=== PATIENT | female | born 1995 | race Caucasian/White ===

== ENCOUNTER 2017-02-12 12:30 | Inpatient (IN) | payer BC, MEDICAID ==
[~2017-02-12] VITALS: Ht 154.9 cm; Wt 63.5 kg
--- NOTE | ~2017-02-12 | FD ---
ADMIT: 02/12/2017 RM/LOC: 229 [facility] MR#: [id number] [id number] [facility] [address] [place] [id number] [address] [place] [address] Final Diagnosis SEX: F AGE: 21 : 1995 ADMISSION DATE: 02/12/2017 DISCHARGE DATE: 02/13/2017 FINAL DIAGNOSIS: 1. A 21-year-old 3 para 2-0-1-2 status post spontaneous vaginal delivery at 38 weeks 0 days. 2. Episiotomy, status post repair. PROCEDURE: 1. Spontaneous vaginal delivery. 2. Episiotomy, status post repair. Abbie Samayoa MD Resident / Georgia Covington MD / monet JOB #: [id number] CC: Dinora Salas MD, Attending Physician FAMILY PHYSICIAN, Family Physician
--- NOTE | 2017-02-13 11:04 | HP ---
ADMIT: 02/12/2017 RM/LOC: 229 [facility] MR#: [id number] [id number] [place], [place] [address] [address] [place] [address] History and Physical SEX: F AGE: 21 : 1995 CORRECTED: 02/13/2017 0703 [facility] DATE OF SERVICE: 02/12/2017 CHIEF COMPLAINT: Contractions and vaginal bleeding. HISTORY OF PRESENT ILLNESS: This is a 21-year-old, G3, P 1-0-1-1 with an intrauterine at 38 weeks zero days via LMP and confirmed by first- trimester ultrasound, who presents with vaginal bleeding which is bright and mixed with mucus in character as well as contractions which are occurring every 5 minutes. The patient reports the contractions started approximately one day ago but increased in intensity and frequency this morning around 9:00 a.m. She was observed for approximately 1 hour and cervical changes noted with the change from 4 cm to 5-1/2 cm over the course of 1 hour. She denied leaking of fluid at the time of admission. Normal movement. Denies headache, changes of vision, chest pain, or shortness of breath. No nausea, vomiting, diarrhea, or constipation. COMPLICATIONS: History of vaginal spotting in the second trimester which resolved spontaneously. No other known complications. PAST MEDICAL HISTORY: She denies a history of diabetes, hypertension, or asthma. She does have a history of anemia. SURGICAL HISTORY: She denies a surgical history. MEDICATIONS: 1. Iron supplement. 2. Ferrous sulfate 325 mg daily. 3. vitamin. ALLERGIES: SHE DENIES ANY MEDICAL ALLERGIES. SOCIAL HISTORY: She denies tobacco use, alcohol use, or recreational drug use. The father of the baby is her boyfriend and is involved. FAMILY HISTORY: She denies a family history of hypertension or diabetes. No known cardiovascular disease. REVIEW OF SYSTEMS: She denies headache, changes of vision, chest pain, or shortness of breath. No nausea, vomiting, diarrhea, or constipation. PHYSICAL EXAMINATION: VITAL SIGNS: Blood pressure 125/80, pulse 93, respiratory rate 20, she is afebrile with a temperature of 98.2, and she is saturating 97% on room air. GENERAL: She is generally alert and oriented, in no acute distress. HEART: Regular rate and rhythm. LUNGS: Clear to auscultation bilaterally. ABDOMEN: Gravid. Nontender to palpation. Fetus appears vertex via Andrew's ADMIT: 02/12/2017 RM/LOC: 229 [facility] MR#: [id number] [address] [address] [place] [address] History and Physical SEX: F AGE: 21 : 1995 maneuver. Estimated weight is 3100 g. EXTREMITIES: She has no edema and distal pulses are 2+. heart tones baseline is 130, positive for accelerations, no decels. Moderate variability. Contractions q.5 minutes upon presentation and increased to q.2 to 3. Sterile vaginal exam per nursing staff 5.5, 50, -1. LABS: The patient is GBS negative. Blood type is O positive with direct antibody testing negative. Rubella immune. Syphilis negative. Hepatitis negative. Chlamydia and gonorrhea negative. Hemoglobin is 13.2. ASSESSMENT AND PLAN: This is a 21-year-old, 3, para 1-0-1-1 with intrauterine at 38 weeks zero days via LMP and confirmed by first- trimester ultrasound, who [facility] with chief complaint of contractions. SROM with active labor. 1. Admit to Labor and delivery for active labor management. Plan for expectant management. Consents were obtained for vaginal delivery, assistive vaginal delivery, and section if needed. Her blood type is O positive and she does consent to transfusion if needed. CBC drawn upon admission. 2. Group B Streptococcus negative. No antibiotic prophylaxis indicated at this time. 3. heart tones are reassuring, category one. We will continue to monitor throughout the labor process. 4. Maternal well being. She declines pain medications at this time. We will reassess need for pain medications throughout the labor process. Abbie Samayoa MD Resident / Georgia Covington MD / modl JOB #: [id number] CC: Dinora Salas MD, Attending Physician NO FAMILY PHYSICIAN, Family Physician CORRECTED: 02/13/2017 0703 [facility]
[2017-02-14] MEDS ORDERED: IRON325 M1 PO (18:52)
[2017-02-14] MEDS ORDERED: PRENATAL VIT1 TAB PO (18:53)
[2017-02-14] MEDS ORDERED: MOTRIN-DPS800 MG PO (18:53)
[2017-02-14] MEDS ORDERED: NIPPLECREAM TP (18:53)
--- NOTE | 2017-02-18 07:46 | OR ---
ADMIT: 02/12/2017 RM/LOC: 229 [facility] MR#: [id number] [address] [address] [address] [place] [id number] Operative/Delivery Room Report SEX: F AGE: 21 : 1995 SURGERY DATE: 02/12/2017 SURGEON: Georgia Covington MD PREPROCEDURE DIAGNOSES: 1. A 21-year-old 3, para 1-0-1-1 with an intrauterine at 38 weeks 0 days via last menstrual period and confirmed with first- trimester ultrasound. 2. Uncomplicated . POSTPROCEDURE DIAGNOSES: 1. A 21-year-old 3, para 2-0-1-2, status post spontaneous vaginal delivery at 38 weeks 0 days. 2. Episiotomy performed secondary to nonreassuring heart tones. 3. Episiotomy repair. FINDINGS: A viable female infant with a weight of 7 pounds 7 ounces and scores of 9 and 9 in OP presentation with restitution to ROP. Normal placenta with 3-vessel cord. ESTIMATED BLOOD LOSS: 250 mL. HOSPITAL COURSE AND PROCEDURE IN DETAIL: This is a 21-year-old -0-1-1 with intrauterine at 38 weeks 0 days via LMP and confirmed with first-trimester ultrasound, who presented to Labor and Delivery and was admitted for SROM with regular contractions. She ultimately progressed to complete. The mother was complete and pushing. The 's head was brought to the perineum. The head remained on the perineum for approximately 2 minutes as the patient was unable to use expulsive efforts to push the head through the perineum. Due to nonreassuring heart tones, an episiotomy was cut approximately 1 cm down the perineum. The infant's head was delivered occiput posterior. Anterior and posterior shoulders were delivered without difficulty. The rest of the body followed. The was vigorous and was stimulated. Infant was placed on the mother's abdomen. Delayed cord clamping was performed. The cord was clamped and cut. Cord ADMIT: 02/12/2017 RM/LOC: 229 [facility] MR#: [id number] [address] [address] [address] [place] [address] Operative/Delivery Room Report SEX: F AGE: 21 : 1995 blood was collected. Pitocin was administered per protocol. No cord gases were collected. The placenta delivered spontaneously with a 3-vessel cord. Placental anatomy noted to be normal. The uterus was found to be firm and below the umbilicus. The vagina and perineum were inspected for lacerations. A small hemostatic superficial labial abrasion was noted on the left labial region. This was hemostatic without repair. Episiotomy was present and was repaired as a second-degree perineal laceration in a standard fashion with 3-0 Vicryl suture. All tissues were hemostatic following the repair. Counts were correct x2. The and mother were stable in the mother's room. The patient tolerated the procedure well. Estimated blood loss was [address] Georgia Covington was present for the entire procedure. Abbie Samayoa MD Resident / Georgia Covington MD / modl JOB #: [id number] CC: Dinora Salas MD, Attending Physician NO FAMILY PHYSICIAN, Family Physician
== END 2017-02-13 21:18 | disposition home or self-care (01) | DRG 775 ==
LOC: 2LDRP 12:30 → BC 12:30 → 2LDRP 15:31 → BC 02-26 08:00
PROVIDERS: ADMIT Family Medicine
PROC: 10E0XZZ Delivery of Products of Conception, External Approach (ICD-10-PCS; principal; 2017-02-12)
PROC: 10907ZC Drainage of Amniotic Fluid, Therapeutic from Products of Conception, Via Natural or Artificial Opening (ICD-10-PCS; principal; 2017-02-12)
PROC: 0W8NXZZ Division of Female Perineum, External Approach (ICD-10-PCS; principal; 2017-02-12)
DX: O99.02 Anemia complicating childbirth (principal); O64.0XX0 Obstructed labor due to incomplete rotation of fetal head, not applicable or unspecified; D64.9 Anemia, unspecified; O76 Abnormality in fetal heart rate and rhythm complicating labor and delivery; Z3A.38 38 weeks gestation of pregnancy; Z37.0 Single live birth